=== PATIENT | female | born 2000 | race Caucasian/White ===

== ENCOUNTER 2024-06-05 21:28 | Emergency (ER) | payer OTHER, SELFPAY ==
[2024-06-05 21:30] VITALS: BP 130/85
--- NOTE | 2024-06-05 22:00 | ED.GENMED ---
History of Present Illness
General
Chief Complaint: Flank Pain
Source: patient
Exam Limitations: none
Time Seen by Provider: 06/05/24 21:45
History of Present Illness
History of Present Illness:
This is a 23 year old female that comes in with c/o vomiting and pain in the low center of her back. States that this started today and was constant around 7:30pm. State that the pain got worse. States that she thinks she has a kidney stone. Patient
Denies having stones in the past. States that she felt SOB with the pain. Denies any fever, chills, chest pain, diarrhea, headache, dizziness, urinary burning.
Past History
Past History
ED Past Medical History: Psychiatric (Depression, OCD); Negative Asthma, HTN, Hypercholesterolemia or NIDDM
ED Past Surgical History: None
Social History
Tobacco: Non-smoker
Alcohol: None
Personal: Single
Living: with family
Review of Systems
Review of Systems
All Other Systems: ROS reviewed and negative except as documented in HPI and ROS
Constitutional: Reports no symptoms; Denies fever or chills
EENT: Reports no symptoms
Respiratory: Reports trouble breathing (with pain); Denies cough
Cardiac: Reports no symptoms; Denies chest pain
ABD/GI: Reports abdominal pain, nausea and vomiting; Denies diarrhea
: Reports no symptoms; Denies dysuria
Musculoskeletal: Reports back pain (Low mid back pain)
Skin: Reports no symptoms
Neurological: Reports no symptoms; Denies dizzy or headache
Psychiatric: Reports no symptoms
Phy Exam
General Physical Exam
General Presentation: well appearing and no apparent distress
General age: appears stated age
General Skin: warm and dry
General Habitus: normal
General Mental: alert
General Hydration: dry mucous membranes
ENT Exam
ENT Exam: TM's normal, pharynx normal and neck supple
Eye Exam
Eye Exam: EOMI
Cardiovascular Exam
Cardiovascular Exam: regular rate/rhythm, no edema, no murmur and normal peripheral pulses
Pulmonary Exam
Pulmonary Exam: lungs clear, no respiratory distress, no rales, chest non tender, no crackles, no rhonchi and no cough
Gastrointestinal Exam
Gastrointestinal Exam: normal bowel sounds, non tender, soft, no organomegaly, no pulsatile mass and non distended
Musculoskeletal Exam
Musculoskeletal Exam: full ROM and no edema
Skin Exam
Skin Exam: normal color, warm/dry, no rash and no petechia
Psychiatric Exam
Psychiatric Exam: normal mood/affect
Course
Orders/Labs/Results
Orders:
Orders
06/05/24 21:56
CMP [Comprehensive Metabolic Panel] Urgent
Complete Blood Count/With Diff Urgent
HCG, Serum Qualitative Screen Urgent
Comment: ADD ON
Lipase Urgent
Comment: ADD ON
06/05/24 21:59
Add On- LAB Urgent
Tests Added?: HCG, Lipase,
Ketorolac [Toradol] 30 mg IV NOW STA
Ondansetron Injectable [Zofran] 4 mg IV NOW STA
06/05/24 22:00
Urinalysis Reflex To Culture Urgent
Date Specimen was Collected: 06/05/24
Time Specimen was Collected: 23:59
0.9% Sodium Chloride 500 ml [Nss] 500 ml IV BOLUS
06/05/24 22:17
CT Abd/pelvis W Iv Cont Urgent
Comment:
Reason For Exam: lOW BACK PAIN AND ABD PAIN
06/05/24 23:51
Acetaminophen [Tylenol] 1,000 mg PO NOW STA
Ondansetron Injectable [Zofran] 4 mg IV NOW STA
06/06/24 01:00
Diphenhydramine [Benadryl] 25 mg IV NOW STA
Prochlorperazine [Compazine] 5 mg IV NOW STA
Abnormal Lab Results
06/05/24 06/06/24 06/06/24
21:56 00:14 01:42
WBC 14.5 H 10^3/uL
(4.8-10.8)
MCHC 32.8 L g/dL
(33.0-37.0)
Abs Immat Gran (auto) 0.1 H 10^3/uL
(0-0.05)
Absolute Neuts (auto) 13.2 H 10^3/uL
(1.4-6.5)
Absolute Lymphs (auto) 0.7 L 10^3/uL
(1.2-3.4)
Neutrophils % 91.5 H %
(42.2-75.2)
Lymphocytes % 4.7 L %
(20.5-51.1)
Creatinine 0.5 L mg/dL
(0.6-1.0)
Glucose 184 H mg/dl
(70-99)
Urine Ketones 2+ A
(Negative)
POC Glucose 144 H mg/dl
(70-99)
06/05/24 21:56
06/05/24 21:56
Leukocytosis, Hyperglycemia. Lipase normal at 48, HCG negative. Urine negative for infection. Urine positive for Ketones.
Vital Signs
Initial and Last Documented VS:
Initial Vital Signs
Temp Pulse Resp BP Pulse Ox
98.5 F 113 16 130/85 98
06/05/24 21:30 06/05/24 21:30 06/05/24 21:30 06/05/24 21:30 06/05/24 21:30
Last Documented Vital Signs
Temp Pulse Resp BP Pulse Ox
98.5 F 115 19 124/82 96
06/05/24 21:30 06/06/24 01:09 06/06/24 01:09 06/06/24 00:18 06/06/24 01:09
MDM/Problems Addressed
Differential Diagnosis Includes:
Viral GI syndrome. UTi
MDM/Problems Addressed:
This is a 23 year old female that comes in with c/o low back pain in the center and vomiting. States that this started today and then got worse around 7:30pm.
Will check labs, Urine, give IV fluids and Zofran for the nausea.
Back into see patient. Explained that her CT shows that this is Enterocolitis. This is most likely due to a viral illness that is going around. Will give patient a Prescription for Augmentin and it she is not feeling any better by Friday she can't
start on the antibiotics. Patient to use Tylenol and Ibuprofen for back pain. Patient to follow up with the family doctor for recheck. PATIENT TO RETURN WITH ANY CONCERNS .
Chronic conditions affecting care:
NA
Acute Exacerbation and/or Progression of Chronic Illness:
NA
*Radiology
Radiology exam reviewed: radiology read reviewed (CT-night hawk-Air fluid levels within non-pathologically dilated loops of small and large bowel, although more solid stool in the distal large bowel suggesting against active diarrhea no wall
thickening or inflammatory changes. Small mesenteric lymph nodes. In the correct clinical context this may), all reviewed NAD by ED Provider (CT cont-may represent enterocolitis. Normal appendix. No renal or obstraucting ureteral stones. No
hydronephrosis or hydroureter. Gallbladder is unremarkable. No obvious stones but CT has a diminished sensitivity for noncalcified gallstones. No biliary dilation. Probable 2.1cm dominant follicle ) and other (CT cont- right ovary. )
*Pulse Oximetry
Patient hypoxic: no
*EKG
Interpreted by ED Provider?: NA
Rate: EKG- N/A
*[employer] Interpretation
Rate: [employer]- N/A
*Critical Care Note
Total Time (30-74mins, 75-104mins- exclusive of procedures): Not Applicable
ED Attending Note
-
Portions of this chart may have been created with voice recognition software.� Occasional wrong word or��sound alike� substitutions may have occurred due to the inherent limitations of voice recognition software.
Discharge Plan
Departure
Patient Disposition: Home (Routine Discharge)
Date of Disposition: 06/06/24
Time of Disposition: 01:48
Patient with high blood pressure during this ER visit?: No
Condition: Good
Covid-19: Not Applicable
Discharge Problem:
Enterocolitis
Instructions: Abdominal pain in adults - ED discharge instructions
Prescriptions:
New
amoxicillin-pot clavulanate 875-125 mg tablet
1 tab PO BID Qty: 20 0RF
ondansetron 4 mg tablet,disintegrating
4 mg PO Q8H PRN (Reason: nausea and vomiting) Qty: 7 0RF
Referrals:
NONE,* [Family Provider] -
Activity Restrictions/Additional Instructions:
As discussed, your blood work shows that your white blood cell count is elevated. Your CT shows you have enterocolitis. This is most likely due to a viral illness of the Gi tract. However, if you are not feeling any better by Friday you have been
given a prescription for an antibiotic. Please increase your water intake to 8-8oz glasses daily. You have had a prescription for Zofran sent to the Pharmacy to help with any nausea, vomiting. You may have diarrhea so please stay away form milk and
milk products as this is hard for the gut to digest. Follow up with the family doctor for recheck. Please have your family doctor check your fasting blood sugar as your sugar is elevated. IF YOU HAVE ANY OTHER CONCERNS PLEASE RETURN TO THE
EMERGENCY ROOM.
Interventions
Interventions:
*Risk Screen - Suicide Last Done: 06/05/24 21:30
*General Assessment Last Done: 06/05/24 21:30
*Neglect/Abuse Screening Last Done: 06/05/24 21:30
ED- Fall Risk Assessment Last Done: 06/05/24 21:52
*ED COVID-19 Vaccine History Last Done: 06/05/24 21:30
JG-Jwprbz-Qlgweuatvg Assessment Last Done: 06/05/24 21:41
ED-Female Genitourinary Assessment Last Done: 06/05/24 21:41
ED-Musculoskeletal Assessment Last Done: 06/05/24 21:42
Discharge Date and Time
Print Language: [id number]
[2024-06-05 22:02] LABS: % Basophils 0.3 % (0-2); % Eosinophils 0.1 % (0-6); % Immature Granulocytes 0.4 % (0-0.5); % Lymphocytes 4.7 % (20.5-51.1); % Neutrophils 91.5 % (42.2-75.2); Absolute Immature Granulocytes 0.1 10^3/uL (0-0.05); Absolute Lymphocytes 0.7 10^3/uL (1.2-3.4); Absolute Monocytes 0.4 10^3/uL (0.1-0.6); Absolute Neutrophils 13.2 10^3/uL (1.4-6.5); Hematocrit 40.8 % (37.0-47.0); Hemoglobin 13.4 g/dL (12.0-16.0); Mean Corp Hgb Conc. 32.8 g/dL (33.0-37.0); Mean Corpuscular Volume 82.1 fL (81.0-99.0); Mean Platelet Volume 8.6 fL (7.4-10.4); Nucleated Red Blood Cells % 0 %; Platelet Count 354 10^3/uL (130-400); Red Blood Cell Count 4.97 10^6/uL (4.20-5.40); Red Cell Dist. Width 13.5 % (11.5-14.5); White Blood Cell Count 14.5 10^3/uL (4.8-10.8)
[2024-06-05] MEDS: ZOFRAN 4 MG IV ×2 (22:07→23:54)
[2024-06-05] MEDS: NSS 500 IV (22:07)
[2024-06-05] MEDS: TORADOL 30 MG IV (22:07)
[2024-06-05 22:17] LABS: HCG, Serum Qualitative Screen Negative
[2024-06-05 22:20] LABS: ALT (SGPT) 25 U/L (0-35); AST (SGOT) 25 U/L (14-36); Albumin 4.8 g/dl (3.5-5.0); Alkaline Phosphatase 125 U/L (38-126); Blood Urea Nitrogen 11 mg/dl (7-17); Calcium 9.5 mg/dl (8.4-10.2); Carbon Dioxide 23 mmol/L (22-30); Chloride 102 mmol/L (98-107); Estimated Creatinine Clearance > 125 ml/min; Glucose 184 mg/dl (70-99); Lipase 48 U/L (23-300); Sodium 137 mmol/L (135-145); Total Bilirubin 0.3 mg/dl (0.2-1.3); Total Protein 7.9 g/dl (6.3-8.2); eGFR > 60.00
[2024-06-05] MEDS: TYLENOL 1000 MG PO (23:54)
[2024-06-06 00:18] VITALS: BP 124/82
[2024-06-06 00:35] LABS: Urine Albumin Trace (Neg - Trace); Urine Bilirubin Negative (Negative); Urine Character Clear (Clear); Urine Color Yellow; Urine Glucose Negative (Negative); Urine Ketone 2+ (Negative); Urine Leukocyte Negative (Negative); Urine Nitrite Negative (Negative); Urine Occult Blood Negative (Negative); Urine Specific Gravity 1.005 (<1.030); Urine Urobilinogen Negative (Neg - 1+); Urine pH 6.5 (5.0-9.0)
[2024-06-06] MEDS: BENADRYL 25 MG IV (01:03)
[2024-06-06] MEDS: COMPAZINE 5 MG IV (01:03)
[2024-06-06 01:44] LABS: Glucose - Point of Care 144 mg/dl (70-99)
== END 2024-06-06 01:55 | disposition home or self-care (01) ==
LOC: EMR 21:28
PROVIDERS: Clinical Nurse Specialist Family Health; EMERGENCY PHYSICIAN Emergency Medicine
DX: K52.9 Noninfective gastroenteritis and colitis, unspecified (principal); M54.50 Low back pain, unspecified
CPT/HCPCS: 96374; 96375; 96376; 96361; 99284; 74177; 80053; 81003; 82962; 83690; 84703; 85025; Q9967